=== PATIENT | male | born 1970 | race American Indian/Alaskan Native ===

== ENCOUNTER 2021-01-25 03:02 | Emergency (ER) | payer SELFPAY ==
[2021-01-25 03:42] LABS: Basophils % (Auto) 0.3 % (0.0-1.8); Eosinophils # (Auto) 0.2 K/mm3 (0.0-0.4); Eosinophils % (Auto) 3.3 % (0.0-4.3); Hematocrit 39.6 % (35.5-45.6); Hemoglobin 13.7 gm/dl (11.8-15.2); Lymphocytes # (Auto) 2.2 K/mm3 (1.2-5.4); Lymphocytes % (Auto) 44.5 % (13.4-35.0); Mean Corpuscular HGB Conc 35 % (32-34); Mean Corpuscular Volume 90 fl (84-94); Monocytes # (Auto) 0.4 K/mm3 (0.0-0.8); Monocytes % (Auto) 7.9 % (0.0-7.3); Platelet Count 253 K/mm3 (140-440); Red Blood Count 4.39 M/mm3 (3.65-5.03); Red Cell Distribution Width 14.1 % (13.2-15.2)
[2021-01-25 04:04] LABS: Alanine Aminotransferase 20 units/L (7-56); Albumin 3.4 g/dL (3.9-5); BUN/Creatinine Ratio 12; Blood Urea Nitrogen 13 mg/dL (9-20); Hemolysis Index 9
--- NOTE | 2021-01-25 04:06 | XRay Report ---
CHEST PA AND LATERAL VIEWS INDICATION: chest pain. COMPARISON: None FINDINGS: Support devices: None Heart: Normal Lungs/Pleura: No acute pulmonary or pleural findings. IMPRESSION: 1. No significant abnormality. Signer Name: Willaim Romeo MD Signed: 01/25/2021 4:02 AM Workstation Name: [id number]
[2021-01-25] MEDS ORDERED: IPRATROPIUM/ALBUTEROL SULFATE 3 ML AMPUL.NEB IH ONE (06:20)
--- NOTE | 2021-01-25 07:02 | Emergency Department Report ---
ED Chest Pain HPI - General Chief Complaint: Chest Pain Stated Complaint: CHEST PAIN/DIZZINESS/BODY NUMBNESS Time Seen by Provider: 01/25/21 06:05 Source: patient Mode of arrival: Ambulatory Limitations: No Limitations - History of Present Illness Initial Comments: Patient is a 50-year-old F Q[place] male who is presenting with chest discomfort. Patient has a past medical history of asthma diabetes hypertension. Patient states his pain started approximately 1 AM last night. He has had a cough for several days productive of some clear sputum. Denies fever body aches. Patient on arrival was eating potato chips and was somewhat uncooperative. During my assessment the patient is sleeping comfortably and is a poor historian as he was reluctant to answer questions seem to does not want to be bothered.. - Related Data Previous Rx's Medication Instructions Recorded Last Taken Type Albuterol Mdi (or & Nicu Only) 2 puff IH QID PRN #1 inhalation 01/25/21 Unknown Rx [ProAir HFA Inhaler] Benzonatate [Tessalon Perles] 100 mg PO Q8HR #10 capsule 01/25/21 Unknown Rx predniSONE [Deltasone] 20 mg PO QDAY #5 tab 01/25/21 Unknown Rx Allergies Allergy/AdvReac Type Severity Reaction Status Date / Time Sulfa (Sulfonamide Allergy Unknown Verified 01/25/21 03:08 Antibiotics) Heart Score - HEART Score History: Slightly suspicious EKG: Normal Age: 45-65 Risk factors: 1-2 risk factors Troponin: < normal limit HEART Score: 2 - EKG Read Time Time EKG Completed: 03:14 EKG Read Time: 03:19 ED Review of Systems ROS: Stated complaint: CHEST PAIN/DIZZINESS/BODY NUMBNESS Other details as noted in HPI Comment: All other systems reviewed and negative ED Past Medical Hx - Past Medical History Previous Medical History?: Yes Hx Hypertension: Yes Hx Diabetes: Yes Hx Sickle Cell Disease: Yes Hx Asthma: Yes - Surgical History Past Surgical History?: No - Social History Smoking Status: Current Every Day Smoker Substance Use Type: Alcohol, Cocaine - Medications Home Medications: Home Medications Medication Instructions Recorded Confirmed Last Taken Type Albuterol Mdi (or & Nicu Only) 2 puff IH QID PRN #1 inhalation 01/25/21 Unknown Rx [ProAir HFA Inhaler] Benzonatate [Tessalon Perles] 100 mg PO Q8HR #10 capsule 01/25/21 Unknown Rx predniSONE [Deltasone] 20 mg PO QDAY #5 tab 01/25/21 Unknown Rx ED Physical Exam - General Limitations: No Limitations General appearance: alert, in no apparent distress - Head Head exam: Present: atraumatic, normocephalic - Eye Eye exam: Present: normal appearance - ENT ENT exam: Present: mucous membranes moist - Neck Neck exam: Present: normal inspection - Respiratory Respiratory exam: Present: wheezes. Absent: normal lung sounds bilaterally, respiratory distress, rales, rhonchi - Cardiovascular Cardiovascular Exam: Present: regular rate, normal rhythm, normal heart sounds. Absent: systolic murmur, diastolic murmur, rubs, gallop - GI/Abdominal GI/Abdominal exam: Present: soft, normal bowel sounds. Absent: distended, tenderness, guarding, rebound - Rectal Rectal exam: Present: deferred - Extremities Exam Extremities exam: Present: normal inspection - Back Exam Back exam: Present: normal inspection - Neurological Exam Neurological exam: Present: alert, oriented X3 - Psychiatric Psychiatric exam: Present: normal affect, normal mood - Skin Skin exam: Present: warm, dry, intact, normal color. Absent: rash ED Course Vital Signs 01/25/21 01/25/21 01/25/21 03:05 05:00 05:16 Temperature 98.3 F Pulse Rate 80 98 H 98 H Respiratory 16 15 16 Rate Blood Pressure 145/95 140/93 135/80 O2 Sat by Pulse 97 97 96 Oximetry 01/25/21 01/25/21 01/25/21 05:30 05:46 06:00 Temperature Pulse Rate 99 H 86 86 Respiratory 14 14 17 Rate Blood Pressure 141/78 135/80 142/77 O2 Sat by Pulse 97 95 97 Oximetry 01/25/21 01/25/21 01/25/21 06:16 07:00 07:30 Temperature Pulse Rate 79 86 Respiratory 17 17 17 Rate Blood Pressure 121/79 140/78 130/70 O2 Sat by Pulse 96 93 98 Oximetry 01/25/21 08:00 Temperature Pulse Rate 82 Respiratory 14 Rate Blood Pressure 141/82 O2 Sat by Pulse 96 Oximetry ED Medical Decision Making - Lab Data Result diagrams: 01/25/21 03:16 01/25/21 03:16 Labs 01/25/21 01/25/21 03:16 03:16 WBC 5.0 RBC 4.39 Hgb 13.7 Hct 39.6 MCV 90 MCH 31 MCHC 35 H RDW 14.1 Plt Count 253 Lymph % (Auto) 44.5 H [place] % (Auto) 7.9 H Eos % (Auto) 3.3 Baso % (Auto) 0.3 Lymph # (Auto) 2.2 [place] # (Auto) 0.4 Eos # (Auto) 0.2 Baso # (Auto) 0.0 Seg Neutrophils % 44.0 Seg Neutrophils # 2.2 Sodium 136 L Potassium 4.4 Chloride 98.9 Carbon Dioxide 29 Anion Gap 13 BUN 13 Creatinine 1.1 Estimated GFR > 60 BUN/Creatinine Ratio 12 Glucose 108 H Calcium 8.0 L Total Bilirubin 0.30 AST 32 ALT 20 Alkaline Phosphatase 71 Total Protein 5.0 L Albumin 3.4 L Albumin/Globulin Ratio 2.1 Trop <0.02 - EKG Data -: EKG Interpreted by Ri - EKG Data 01/25/21 07:01 EKG shows sinus rhythm rate of 75. [place] is leftward. Other intervals are normal. No ST segment elevation or depression is found. Time of interpretation is 319 - Radiology Data [facility] [address] [place] [address] XRay Report Signed Patient: ANUJ CALIXTO MR#: [id number] : 1970 Acct:[id number] Age/Sex: 50 / M ADM Date: 01/25/21 Loc: ED Attending Dr: Ordering Physician: MALINI TALAVERA MD Date of Service: 01/25/21 Procedure(s): XR chest routine 2V Accession Number(s): [id number] cc: ED MD SADAF Fluoro Time In Minutes: CHEST PA AND LATERAL VIEWS INDICATION: chest pain. COMPARISON: None FINDINGS: Support devices: None Heart: Normal Lungs/Pleura: No acute pulmonary or pleural findings. IMPRESSION: 1. No significant abnormality. Signer Name: William Romeo MD Signed: 01/25/2021 4:02 AM Workstation Name: [id number] - Medical Decision Making Patient was given a neb treatment and his wheezing has resolved. Troponin is within normal limits as well as his EKG. Patient be treated for acute bronchitis discharged home. Is urged to get outpatient testing for COVID-19. Critical care attestation.: If time is entered above; I have spent that time in minutes in the direct care of this critically ill patient, excluding procedure time. ED Disposition Clinical Impression: Acute bronchitis, Atypical chest pain Disposition: DC- TO HOME OR SELFCARE Is pt being admited?: No Does the pt Need Aspirin: No Condition: Stable Instructions: Acute Bronchitis (ED), Nonspecific Chest Pain, Adult, Acute Bronchitis, Adult, [id number] Additional Instructions: Please get outpatient testing for COVID-19 in a local urgent care Time of Disposition: 08:24
[2021-01-25 08:41] VITALS: BP 141/84
--- NOTE | 2021-01-26 10:46 | Electrocardiograph Report ---
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
== END 2021-01-25 08:47 | disposition home or self-care (01) ==
LOC: ED 03:02
DX: J20.9 Acute bronchitis, unspecified (principal); R07.89 Other chest pain; I10 Essential (primary) hypertension; E11.9 Type 2 diabetes mellitus without complications; Z79.899 Other long term (current) drug therapy; Z88.2 Allergy status to sulfonamides
CPT/HCPCS: 36415; 71046; 80053; 84484; 85025; 93005

== ENCOUNTER 2021-02-11 01:37 | Emergency (ER) | payer SELFPAY ==
[2021-02-11] MEDS ORDERED: ASPIRIN 325 MG TAB PO ONE (01:53)
--- NOTE | 2021-02-11 02:50 | XRay Report ---
CHEST 2 VIEWS INDICATION: CHEST PAIN. COMPARISON: 01/25/2021 FINDINGS: SUPPORT DEVICES: None. HEART: Within normal limits. LUNGS/PLEURA: Mild central peribronchial thickening slightly asymmetric to the right with no consolid ation or effusion. No pneumothorax. ADDITIONAL FINDINGS: None. IMPRESSION: 1. Pulmonary findings as above could reflect very mild/early slightly asymmetric edema or could be re active. Signer Name: Agustin Garay MD Signed: 02/11/2021 2:45 AM Workstation Name: [id number]
[2021-02-11 03:05] LABS: Basophils % (Auto) 0.2 % (0.0-1.8); Eosinophils # (Auto) 0.1 K/mm3 (0.0-0.4); Eosinophils % (Auto) 2.9 % (0.0-4.3); Hematocrit 36.2 % (35.5-45.6); Hemoglobin 12.6 gm/dl (11.8-15.2); Lymphocytes # (Auto) 2.4 K/mm3 (1.2-5.4); Lymphocytes % (Auto) 46.6 % (13.4-35.0); Mean Corpuscular HGB Conc 35 % (32-34); Mean Corpuscular Volume 90 fl (84-94); Monocytes # (Auto) 0.3 K/mm3 (0.0-0.8); Monocytes % (Auto) 6.7 % (0.0-7.3); Platelet Count 219 K/mm3 (140-440); Red Blood Count 4.02 M/mm3 (3.65-5.03)
[2021-02-11 03:28] LABS: Alanine Aminotransferase 21 units/L (7-56); Albumin 3.3 g/dL (3.9-5); BUN/Creatinine Ratio 18; Blood Urea Nitrogen 22 mg/dL (9-20); Calcium 8.2 mg/dL (8.4-10.2); Hemolysis Index 5
--- NOTE | 2021-02-11 08:03 | Emergency Department Report ---
ED General Adult HPI - General Chief complaint: Chest Pain Stated complaint: CHEST PAIN/NUMBNESS IN LEGS/SOB Time Seen by Provider: 02/11/21 08:01 Source: patient Mode of arrival: Ambulatory Limitations: No Limitations - History of Present Illness Initial comments: Patient is a 50-year-old male presents emergency department for evaluation of mild intermittent crampy epigastric discomfort since 1:30 AM associated with wheezing and dry cough beginning at same time. Patient denies calf pain or swelling, denies recent surgery, denies exertional symptoms. Patient denies pleuritic symptoms. - Related Data Previous Rx's Medication Instructions Recorded Last Taken Type Albuterol Mdi (or & Nicu Only) 2 puff IH QID PRN #1 inhalation 01/25/21 Unknown Rx [ProAir HFA Inhaler] Benzonatate [Tessalon Perles] 100 mg PO Q8HR #10 capsule 01/25/21 Unknown Rx predniSONE [Deltasone] 20 mg PO QDAY #5 tab 01/25/21 Unknown Rx Albuterol Mdi (or & Nicu Only) 2 puff IH QID PRN #8.5 gram 02/11/21 Unknown Rx [ProAir HFA Inhaler] Famotidine [Acid Controller] 20 mg PO BID 14 Days #28 tablet 02/11/21 Unknown Rx Allergies Allergy/AdvReac Type Severity Reaction Status Date / Time Sulfa (Sulfonamide Allergy Unknown Verified 01/25/21 03:08 Antibiotics) ED Review of Systems ROS: Stated complaint: CHEST PAIN/NUMBNESS IN LEGS/SOB Other details as noted in HPI Comment: All other systems reviewed and negative ED Past Medical Hx - Past Medical History Hx Hypertension: Yes Hx Diabetes: Yes Hx Sickle Cell Disease: Yes Hx Asthma: Yes - Surgical History Past Surgical History?: No - Social History Smoking Status: Current Every Day Smoker Substance Use Type: None - Medications Home Medications: Home Medications Medication Instructions Recorded Confirmed Last Taken Type Albuterol Mdi (or & Nicu Only) 2 puff IH QID PRN #1 inhalation 01/25/21 Unknown Rx [ProAir HFA Inhaler] Benzonatate [Tessalon Perles] 100 mg PO Q8HR #10 capsule 01/25/21 Unknown Rx predniSONE [Deltasone] 20 mg PO QDAY #5 tab 01/25/21 Unknown Rx Albuterol Mdi (or & Nicu Only) 2 puff IH QID PRN #8.5 gram 02/11/21 Unknown Rx [ProAir HFA Inhaler] Famotidine [Acid Controller] 20 mg PO BID 14 Days #28 tablet 02/11/21 Unknown Rx ED Physical Exam - General Limitations: No Limitations General appearance: alert, in no apparent distress - Head Head exam: Present: atraumatic, normocephalic - Eye Eye exam: Present: normal appearance - ENT ENT exam: Present: mucous membranes moist - Neck Neck exam: Present: normal inspection - Respiratory Respiratory exam: Present: wheezes. Absent: respiratory distress - Cardiovascular Cardiovascular Exam: Present: regular rate, normal rhythm - GI/Abdominal GI/Abdominal exam: Present: soft, tenderness (Mild epigastric), normal bowel sounds - Rectal Rectal exam: Present: deferred - Extremities Exam Extremities exam: Present: normal inspection - Back Exam Back exam: Present: normal inspection - Neurological Exam Neurological exam: Present: alert, oriented X3 - Psychiatric Psychiatric exam: Present: normal affect, normal mood - Skin Skin exam: Present: warm, dry, intact, normal color. Absent: rash ED Course Vital Signs 02/11/21 02/11/21 01:50 09:37 Temperature 99.2 F Pulse Rate 91 H 71 Respiratory 18 16 Rate Blood Pressure 150/88 Blood Pressure 173/95 [Right] O2 Sat by Pulse 94 98 Oximetry - Reevaluation(s) Reevaluation #1: 02/11/21 08:14 Patient initially treated with DuoNeb x1 and Maalox p.o. Reevaluation #2: 02/11/21 09:55 On reevaluation, patient in no acute distress, states wheezing and abdominal pain have resolved with medication. Abdomen soft, nontender. Lungs clear to auscultation bilaterally. ED Medical Decision Making - Lab Data Result diagrams: 02/11/21 02:27 02/11/21 02:27 Labs 02/11/21 02/11/21 02/11/21 02:27 02:27 04:33 WBC 5.2 RBC 4.02 Hgb 12.6 Hct 36.2 MCV 90 MCH 31 MCHC 35 H RDW 14.0 Plt Count 219 Lymph % (Auto) 46.6 H [place] % (Auto) 6.7 Eos % (Auto) 2.9 Baso % (Auto) 0.2 Lymph # (Auto) 2.4 [place] # (Auto) 0.3 Eos # (Auto) 0.1 Baso # (Auto) 0.0 Seg Neutrophils % 43.6 Seg Neutrophils # 2.3 Sodium 134 L Potassium 3.8 Chloride 97.5 L Carbon Dioxide 24 Anion Gap 16 BUN 22 H Creatinine 1.2 Estimated GFR > 60 BUN/Creatinine Ratio 18 Glucose 160 H Calcium 8.2 L Total Bilirubin 0.30 AST 32 ALT 21 Alkaline Phosphatase 62 Troponin T < 0.010 < 0.010 Total Protein 4.8 L Albumin 3.3 L Albumin/Globulin Ratio 2.2 Lipase 02/11/21 08:17 WBC RBC Hgb Hct MCV MCH MCHC RDW Plt Count Lymph % (Auto) [place] % (Auto) Eos % (Auto) Baso % (Auto) Lymph # (Auto) [place] # (Auto) Eos # (Auto) Baso # (Auto) Seg Neutrophils % Seg Neutrophils # Sodium Potassium Chloride Carbon Dioxide Anion Gap BUN Creatinine Estimated GFR BUN/Creatinine Ratio Glucose Calcium Total Bilirubin AST ALT Alkaline Phosphatase Troponin T < 0.010 Total Protein Albumin Albumin/Globulin Ratio Lipase 50 Vital Signs 02/11/21 02/11/21 01:50 09:37 Temperature 99.2 F Pulse Rate 91 H 71 Respiratory 18 16 Rate Blood Pressure 150/88 Blood Pressure 173/95 [Right] O2 Sat by Pulse 94 98 Oximetry - EKG Data -: EKG Interpreted by Me (Sinus rhythm at 84, no ST-T changes, normal QRs) - Radiology Data Radiology results: report reviewed CHEST 2 VIEWS INDICATION: CHEST PAIN. COMPARISON: 01/25/2021 FINDINGS: SUPPORT DEVICES: None. HEART: Within normal limits. LUNGS/PLEURA: Mild central peribronchial thickening slightly asymmetric to the right with no consolidation or effusion. No pneumothorax. ADDITIONAL FINDINGS: None. IMPRESSION: 1. Pulmonary findings as above could reflect very mild/early slightly asymmetric edema or could be reactive. Signer Name: Agustin Garay MD Signed: 02/11/2021 1:45 AM Workstation Name: [id number] Critical care attestation.: If time is entered above; I have spent that time in minutes in the direct care of this critically ill patient, excluding procedure time. ED Disposition Clinical Impression: Abdominal pain, Asthma exacerbation Disposition: DC-01 TO HOME OR SELFCARE Is pt being admited?: No Condition: Stable Instructions: Bronchospasm, Adult, Abdominal Pain, Adult Additional Instructions: Follow-up with primary care doctor in 1 to 2 days for reevaluation. Return to the emergency department for worsening symptoms. Prescriptions: Famotidine [Acid Controller] 20 mg PO BID 14 Days #28 tablet Albuterol Mdi (or & Nicu Only) [ProAir HFA Inhaler] 2 puff IH QID PRN #8.5 gram PRN Reason: Shortness Of Breath Referrals: PRIMARY CARE, [Primary Care Provider] - 3-5 Days
[2021-02-11] MEDS ORDERED: IPRATROPIUM/ALBUTEROL SULFATE 3 ML AMPUL.NEB IH ONE (08:11)
[2021-02-11] MEDS ORDERED: ALUM-MAG HYDROXIDE-SIMETHICONE 200-200-20MG/5ML ORAL LIQD 30 ML PO ONE (08:13)
[2021-02-11 09:38] VITALS: BP 173/95
--- NOTE | 2021-02-12 13:44 | Electrocardiograph Report ---
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
== END 2021-02-11 09:40 | disposition home or self-care (01) ==
LOC: ED 01:37
DX: J45.901 Unspecified asthma with (acute) exacerbation (principal); R10.9 Unspecified abdominal pain; I10 Essential (primary) hypertension; E11.9 Type 2 diabetes mellitus without complications; F17.200 Nicotine dependence, unspecified, uncomplicated; Z79.899 Other long term (current) drug therapy; Z88.2 Allergy status to sulfonamides
CPT/HCPCS: 36415; 71046; 80053; 83690; 84484; 85025; 93005

== ENCOUNTER → 2021-06-12 | Emergency (ER) | payer OTHER ==
[~2021-06-12] MED LIST: ASPIRIN 325 MG TAB PO ONE
[2021-06-12 05:38] VITALS: BP 149/98
--- NOTE | 2021-06-12 07:02 | XRay Report ---
CHEST 2 VIEWS INDICATION / CLINICAL INFORMATION: CHEST PAIN. COMPARISON: 02/11/2021 FINDINGS: SUPPORT DEVICES: None. HEART / MEDIASTINUM: No significant abnormality. LUNGS / PLEURA: No significant pulmonary or pleural abnormality. No pneumothorax. ADDITIONAL FINDINGS: No significant additional findings. IMPRESSION: 1. No acute findings. Signer Name: Adam Billings MD Signed: 06/12/2021 6:58 AM Workstation Name: [id number]
[2021-06-12 07:21] LABS: Basophils % (Auto) 0.4 % (0.0-1.8); Eosinophils # (Auto) 0.2 K/mm3 (0.0-0.4); Hematocrit 36.9 % (35.5-45.6); Hemoglobin 12.4 gm/dl (11.8-15.2); Lymphocytes # (Auto) 2.8 K/mm3 (1.2-5.4); Lymphocytes % (Auto) 54.2 % (13.4-35.0); Mean Corpuscular HGB Conc 34 % (32-34); Mean Corpuscular Volume 90 fl (84-94); Monocytes # (Auto) 0.4 K/mm3 (0.0-0.8); Monocytes % (Auto) 7.2 % (0.0-7.3); Platelet Count 222 K/mm3 (140-440); Red Blood Count 4.11 M/mm3 (3.65-5.03); Red Cell Distribution Width 14.5 % (13.2-15.2)
[2021-06-12 07:41] LABS: Alanine Aminotransferase 16 units/L (7-56); Albumin 3.3 g/dL (3.9-5); BUN/Creatinine Ratio 20; Blood Urea Nitrogen 24 mg/dL (9-20); Calcium 8.8 mg/dL (8.4-10.2); Hemolysis Index 7
--- NOTE | 2021-06-12 14:01 | Emergency Department Report ---
ED General Adult HPI - General Chief complaint: Chest Pain Stated complaint: PAIN WHEN COUGHING Source: patient Mode of arrival: Ambulatory Limitations: No Limitations - History of Present Illness Initial comments: pt is a 51 yo male presents for multiple complaints. he reports his first complaint is substernal CP that began a month ago. he states that it comes and goes. he states he had bronchitis in march 2021. he states he is a smoker. pt states he has pain with coughing. he denies any SOB, fever, n/v/d. he has not received COVID vaccine. states he got tested for COVID and reports it was negative. Patient states he is also been having right-sided back pain that began 2 to 3 days ago. 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 He denies any fall or injury. He denies any fever, numbness, weakness, bowel or bladder incontinence, difficulty walking. He states his pain is worse with movement and palpation. Patient states that he is also noticed a lump to his scalp that began a few days ago. He states he does shave with a razor. he denies any drainage or fever. PMHx HTN. allergy: sulfa. no recent travel, no sick contacts, no recent surgery. - Related Data Previous Rx's Medication Instructions Recorded Last Taken Type Albuterol Mdi (or & Nicu Only) 2 puff IH QID PRN #1 inhalation 01/25/21 Unknown Rx [ProAir HFA Inhaler] Benzonatate [Tessalon Perles] 100 mg PO Q8HR #10 capsule 01/25/21 Unknown Rx predniSONE [Deltasone] 20 mg PO QDAY #5 tab 01/25/21 Unknown Rx Albuterol Mdi (or & Nicu Only) 2 puff IH QID PRN #8.5 gram 02/11/21 Unknown Rx [ProAir HFA Inhaler] Famotidine [Acid Controller] 20 mg PO BID 14 Days #28 tablet 02/11/21 Unknown Rx Doxycycline Hyclate [Doxycycline 100 mg PO BID 7 Days #14 tab 06/12/21 Unknown Rx Hyclate TAB] Naproxen 375 mg PO BID PRN #20 tablet 06/12/21 Unknown Rx Neomycin/Bacitracin/Polymyxinb 1 applicatio TP BID #14 oint...g. 06/12/21 Unknown Rx [Triple Antibiotic Ointment] methOCARBAMOL [Robaxin TAB] 500 mg PO BID PRN #14 tab 06/12/21 Unknown Rx Allergies Allergy/AdvReac Type Severity Reaction Status Date / Time Sulfa (Sulfonamide Allergy Unknown Verified 01/25/21 03:08 Antibiotics) ED Review of Systems ROS: Stated complaint: PAIN WHEN COUGHING Other details as noted in HPI Comment: All other systems reviewed and negative ED Past Medical Hx - Past Medical History Previous Medical History?: Yes Hx Hypertension: Yes Hx Diabetes: Yes Hx Sickle Cell Disease: Yes Hx Asthma: Yes - Surgical History Past Surgical History?: No - Social History Smoking Status: Never Smoker Substance Use Type: None - Medications Home Medications: Home Medications Medication Instructions Recorded Confirmed Last Taken Type Albuterol Mdi (or & Nicu Only) 2 puff IH QID PRN #1 inhalation 01/25/21 Unknown Rx [ProAir HFA Inhaler] Benzonatate [Tessalon Perles] 100 mg PO Q8HR #10 capsule 01/25/21 Unknown Rx predniSONE [Deltasone] 20 mg PO QDAY #5 tab 01/25/21 Unknown Rx Albuterol Mdi (or & Nicu Only) 2 puff IH QID PRN #8.5 gram 02/11/21 Unknown Rx [ProAir HFA Inhaler] Famotidine [Acid Controller] 20 mg PO BID 14 Days #28 tablet 02/11/21 Unknown Rx Doxycycline Hyclate [Doxycycline 100 mg PO BID 7 Days #14 tab 06/12/21 Unknown Rx Hyclate TAB] Naproxen 375 mg PO BID PRN #20 tablet 06/12/21 Unknown Rx Neomycin/Bacitracin/Polymyxinb 1 applicatio TP BID #14 oint...g. 06/12/21 Unknown Rx [Triple Antibiotic Ointment] methOCARBAMOL [Robaxin TAB] 500 mg PO BID PRN #14 tab 06/12/21 Unknown Rx ED Physical Exam - General Limitations: No Limitations General appearance: alert, in no apparent distress - Head Head exam: Present: other (there is a 2 cm area of induration present to the scalp, no fluctuance, no drainage ) - Eye Eye exam: Present: normal appearance, PERRL, EOMI. Absent: conjunctival injection - ENT ENT exam: Present: mucous membranes moist - Neck Neck exam: Present: normal inspection, full ROM. Absent: tenderness, meningismus - Respiratory Respiratory exam: Present: normal lung sounds bilaterally. Absent: respiratory distress, wheezes, rales, rhonchi, stridor, chest wall tenderness, accessory muscle use, decreased breath sounds, prolonged expiratory - Cardiovascular Cardiovascular Exam: Present: regular rate, normal rhythm, normal heart sounds. Absent: systolic murmur, diastolic murmur, rubs, gallop - Back Exam Back exam: Present: normal inspection, full ROM, paraspinal tenderness (right sided T-spine paraspinal muscular ttp, no midline C-spine, T-spine or L-spine ttp, no step offs, no deformities ). Absent: vertebral tenderness - Neurological Exam Neurological exam: Present: alert, oriented X3, CN II-XII intact, normal gait. Absent: motor sensory deficit - Psychiatric Psychiatric exam: Present: normal affect, normal mood - Skin Skin exam: Present: warm, dry ED Course Vital Signs 06/12/21 05:20 Temperature 98.5 F Pulse Rate 80 Respiratory 18 Rate Blood Pressure 149/98 [Left] O2 Sat by Pulse 100 Oximetry ED Medical Decision Making - Lab Data Result diagrams: 06/12/21 06:49 06/12/21 06:49 Lab Results 06/12/21 06/12/21 06/12/21 Range/Units 06:49 06:49 09:48 WBC 5.3 (4.5-11.0) K/mm3 RBC 4.11 (3.65-5.03) M/mm3 Hgb 12.4 (11.8-15.2) gm/dl Hct 36.9 (35.5-45.6) % MCV 90 (84-94) fl MCH 30 (28-32) pg MCHC 34 (32-34) % RDW 14.5 (13.2-15.2) % Plt Count 222 (140-440) K/mm3 Lymph % (Auto) 54.2 H (13.4-35.0) % Morgan % (Auto) 7.2 (0.0-7.3) % Eos % (Auto) 3.0 (0.0-4.3) % Baso % (Auto) 0.4 (0.0-1.8) % Lymph # (Auto) 2.8 (1.2-5.4) K/mm3 Morgan # (Auto) 0.4 (0.0-0.8) K/mm3 Eos # (Auto) 0.2 (0.0-0.4) K/mm3 Baso # (Auto) 0.0 (0.0-0.1) K/mm3 Seg Neutrophils % 35.2 L (40.0-70.0) % Seg Neutrophils # 1.8 (1.8-7.7) K/mm3 Sodium 142 (137-145) mmol/L Potassium 3.7 (3.6-5.0) mmol/L Chloride 105.7 (98-107) mmol/L Carbon Dioxide 28 (22-30) mmol/L Anion Gap 12 mmol/L BUN 24 H (9-20) mg/dL Creatinine 1.2 (0.8-1.3) mg/dL Estimated GFR > 60 ml/min BUN/Creatinine Ratio 20 % Glucose 83 (75-100) mg/dL Calcium 8.8 (8.4-10.2) mg/dL Total Bilirubin 0.20 (0.1-1.2) mg/dL AST 26 (5-40) units/L ALT 16 (7-56) units/L Alkaline Phosphatase 72 (35-129) units/L Troponin T < 0.010 < 0.010 (0.00-0.029) ng/mL Total Protein 5.1 L (6.3-8.2) g/dL Albumin 3.3 L (3.9-5) g/dL Albumin/Globulin Ratio 1.8 % - EKG Data EKG shows normal: sinus rhythm (at 76 bpm), QRS complexes Rate: normal - EKG Data 06/12/21 14:08 mildly prolonged QT at 446 LAD no STEMI Compared to EKG on 02/15/2021, no significant change - Radiology Data Radiology results: report reviewed Ordering Physician: ED MD SADAF Date of Service: 06/12/21 Procedure(s): XR chest routine 2V Accession Number(s): [id number] cc: ED MD SADAF Fluoro Time In Minutes: CHEST 2 VIEWS INDICATION / CLINICAL INFORMATION: CHEST PAIN. COMPARISON: 02/11/2021 FINDINGS: SUPPORT DEVICES: None. HEART / MEDIASTINUM: No significant abnormality. LUNGS / PLEURA: No significant pulmonary or pleural abnormality. No pneumothorax. ADDITIONAL FINDINGS: No significant additional findings. IMPRESSION: 1. No acute findings. Signer Name: Adam Billings MD Signed: 06/12/2021 6:58 AM Workstation Name: [id number] Transcribed By: TL Dictated By: Adam Billings MD Electronically Authenticated By: Adam Billings MD Signed Date/Time: 06/12/21657 DD/ 6 TD/TT: Print - Medical Decision Making pt is a 51 yo male presents for multiple complaints. he reports his first complaint is substernal CP that began a month ago. he states that it comes and goes. he states he had bronchitis in march 2021. he states he is a smoker. pt states he has pain with coughing. he denies any SOB, fever, n/v/d. he has not received COVID vaccine. states he got tested for COVID and reports it was negative. Patient states he is also been having right-sided back pain that began 2 to 3 days ago. 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 He denies any fall or injury. He denies any fever, numbness, weakness, bowel or bladder incontinence, difficulty walking. He states his pain is worse with movement and palpation. Patient states that he is also noticed a lump to his scalp that began a few days ago. He states he does shave with a razor. he denies any drainage or fever. PMHx HTN. allergy: sulfa. no recent travel, no sick contacts, no recent surgery. Vitals are stable. on exam:there is a 2 cm area of induration present to the scalp, no fluctuance, no drainage, right sided T-spine paraspinal muscular ttp, no midline C-spine, T-spine or L-spine ttp, no step offs, no deformities, no focal neuro deficits, sounds are clear bilaterally, no wheezing, no rales, no rhonchi. Examination appears could likely be consistent with folliculitis and muscle strain. No red flag warning signs of back pain, no trauma, no unexplained weight loss, no fever, no IV drug use, no steroid use, no history of cancer. Labs are normal. Troponin is negative x2. EKG with no significant change from previous. X-ray: 1. No acute findings. Patient has no clinical signs of acute bacterial pneumonia or bacterial bronchitis. He has no wheezing on exam. Discussed smoking cessation with patient. He states that he feels the chest pain with coughing. Do not suspect ACS at this time. given prescription for meds. advised pt please use medication as prescribed. Follow-up with primary care doctor. Return to emergency room for new or worsening symptoms. Critical care attestation.: If time is entered above; I have spent that time in minutes in the direct care of this critically ill patient, excluding procedure time. ED Disposition Clinical Impression: Dry cough, Folliculitis Chest pain Qualifiers: Chest pain type: unspecified Qualified Code(s): R07.9 - Chest pain, unspecified Back pain Qualifiers: Back pain location: thoracic back pain Chronicity: acute Back pain laterality: right Qualified Code(s): M54.6 - Pain in thoracic spine Disposition: HOME / SELF CARE / HOMELESS Is pt being admited?: No Does the pt Need Aspirin: No Condition: Stable Instructions: Acute Back Pain, Adult, Nonspecific Chest Pain, Adult, F olliculitis Additional Instructions: Please use medication as prescribed. Follow-up with primary care doctor. Return to emergency room for new or worsening symptoms. Prescriptions: Doxycycline Hyclate [Doxycycline Hyclate TAB] 100 mg PO BID 7 Days #14 tab Naproxen 375 mg PO BID PRN #20 tablet PRN Reason: pain methOCARBAMOL [Robaxin TAB] 500 mg PO BID PRN #14 tab PRN Reason: muscle spasm/pain Neomycin/Bacitracin/Polymyxinb [Triple Antibiotic Ointment] 1 applicatio TP BID #14 oint...g. Referrals: ROSALES BROWN MD [Staff Physician] - 3-[address] [facility] [Provider Group] - 3-5 Days Time of Disposition: 14:05 Print Language: BHUTANESE HEART Score - HEART Score History: Slightly suspicious EKG: Normal Age: 45-65 Risk factors: > 3 risk factors or hx of atherosclerotic disease Troponin: Troponin T < 0.010 ng/mL (0.00-0.029) 06/12/21 09:48 Troponin: < normal limit HEART Score: 3
--- NOTE | 2021-06-12 17:48 | Electrocardiograph Report ---
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
== END | disposition home or self-care (01) ==
LOC: ED 02:52
DX: R05 Cough (principal); R07.89 Other chest pain; L73.9 Follicular disorder, unspecified; M54.9 Dorsalgia, unspecified; I10 Essential (primary) hypertension; E11.9 Type 2 diabetes mellitus without complications; J45.909 Unspecified asthma, uncomplicated; Z88.2 Allergy status to sulfonamides; Z79.899 Other long term (current) drug therapy
CPT/HCPCS: 36415; 71046; 80053; 84484; 85025; 93005; 99283

== ENCOUNTER 2021-10-02 02:36 | Emergency (ER) | payer SELFPAY ==
[2021-10-02] MEDS ORDERED: KETOROLAC 30 MG/1 ML INJ IM ONE (03:22)
[2021-10-02] MEDS ORDERED: IPRATROPIUM/ALBUTEROL SULFATE 3 ML AMPUL.NEB IH ONE (03:22)
--- NOTE | 2021-10-02 03:22 | Emergency Department Report ---
ED General Adult HPI - General Chief complaint: Chest Pain Stated complaint: CHEST PAIN/DIFF BREATHING Time Seen by Provider: 10/02/21 03:05 Source: patient, EMS Mode of arrival: Stretcher Limitations: No Limitations - History of Present Illness Initial comments: Patient presented by EMS secondary to chest pain, difficulty breathing, dizziness, and lightheadedness. He states that he just did not feel well. He had been released from [facility] at about 2:30 in the afternoon. He had been there for the same symptoms. He was told that x-rays, blood work, and EKG were all normal. Patient was given ibuprofen for pain. He has chronic leg pain and states that that is not helping. He had played with his daughter and grandchild earlier. He was still having symptoms, so he called EMS tonight. EMS admits that the patient seems to be homeless. He seemed to be walking around quite a bit. He had also been drinking alcohol. Patient is describing the chest pain as a soreness in the precordial area. It does not radiate or migrate. It is not exertional. It is worse with inspiration. There is no trauma associated with this. His leg always hurts. He states that when it gets cold, it is worse. He states that ibuprofen does nothing for him and he asked for something stronger for pain. Patient states that he feels dizzy and lightheaded similar to what he felt when he was at [facility]. He is not having any new symptomatology. - Related Data Previous Rx's Medication Instructions Recorded Last Taken Type Albuterol Mdi (or & Nicu Only) 2 puff IH QID PRN #1 inhalation 01/25/21 Unknown Rx [ProAir HFA Inhaler] Benzonatate [Tessalon Perles] 100 mg PO Q8HR #10 capsule 01/25/21 Unknown Rx predniSONE [Deltasone] 20 mg PO QDAY #5 tab 01/25/21 Unknown Rx Albuterol Mdi (or & Nicu Only) 2 puff IH QID PRN #8.5 gram 02/11/21 Unknown Rx [ProAir HFA Inhaler] Famotidine [Acid Controller] 20 mg PO BID 14 Days #28 tablet 02/11/21 Unknown Rx Doxycycline Hyclate [Doxycycline 100 mg PO BID 7 Days #14 tab 06/12/21 Unknown Rx Hyclate TAB] Naproxen 375 mg PO BID PRN #20 tablet 06/12/21 Unknown Rx Neomycin/Bacitracin/Polymyxinb 1 applicatio TP BID #14 oint...g. 06/12/21 Unknown Rx [Triple Antibiotic Ointment] methOCARBAMOL [Robaxin TAB] 500 mg PO BID PRN #14 tab 06/12/21 Unknown Rx Allergies Allergy/AdvReac Type Severity Reaction Status Date / Time Sulfa (Sulfonamide Allergy Unknown Verified 10/02/21 02:59 Antibiotics) ED Review of Systems ROS: Stated complaint: CHEST PAIN/DIFF BREATHING Other details as noted in HPI Comment: All other systems reviewed and negative Constitutional: denies: fever Eyes: denies: vision change ENT: denies: throat pain Respiratory: denies: cough Cardiovascular: as per HPI Endocrine: denies: unexplained weight loss Gastrointestinal: denies: abdominal pain Genitourinary: denies: dysuria Musculoskeletal: denies: back pain Skin: denies: rash Neurological: denies: headache Hematological/Lymphatic: denies: easy bruising ED Past Medical Hx - Past Medical History Hx Hypertension: Yes Hx Diabetes: Yes Hx Sickle Cell Disease: Yes Hx Asthma: Yes - Family History Family history: hypertension - Social History Smoking Status: Never Smoker Substance Use Type: None - Medications Home Medications: Home Medications Medication Instructions Recorded Confirmed Last Taken Type Albuterol Mdi (or & Nicu Only) 2 puff IH QID PRN #1 inhalation 01/25/21 Unknown Rx [ProAir HFA Inhaler] Benzonatate [Tessalon Perles] 100 mg PO Q8HR #10 capsule 01/25/21 Unknown Rx predniSONE [Deltasone] 20 mg PO QDAY #5 tab 01/25/21 Unknown Rx Albuterol Mdi (or & Nicu Only) 2 puff IH QID PRN #8.5 gram 02/11/21 Unknown Rx [ProAir HFA Inhaler] Famotidine [Acid Controller] 20 mg PO BID 14 Days #28 tablet 02/11/21 Unknown Rx Doxycycline Hyclate [Doxycycline 100 mg PO BID 7 Days #14 tab 06/12/21 Unknown Rx Hyclate TAB] Naproxen 375 mg PO BID PRN #20 tablet 06/12/21 Unknown Rx Neomycin/Bacitracin/Polymyxinb 1 applicatio TP BID #14 oint...g. 06/12/21 Unknown Rx [Triple Antibiotic Ointment] methOCARBAMOL [Robaxin TAB] 500 mg PO BID PRN #14 tab 06/12/21 Unknown Rx ED Physical Exam - General Limitations: No Limitations, Other (Pulse ox noted and normal) General appearance: alert, in no apparent distress - Head Head exam: Present: atraumatic, normocephalic, normal inspection - Eye Eye exam: Present: normal appearance, EOMI. Absent: scleral icterus - ENT ENT exam: Present: mucous membranes moist, normal external ear exam - Neck Neck exam: Present: normal inspection. Absent: meningismus - Respiratory Respiratory exam: Present: wheezes (Mild). Absent: respiratory distress - Cardiovascular Cardiovascular Exam: Present: regular rate, normal rhythm - GI/Abdominal GI/Abdominal exam: Present: soft. Absent: tenderness - Extremities Exam Extremities exam: Present: normal capillary refill. Absent: calf tenderness - Back Exam Back exam: Absent: CVA tenderness (R), CVA tenderness (L) - Neurological Exam Neurological exam: Present: alert, oriented X3, CN II-XII intact. Absent: motor sensory deficit - Psychiatric Psychiatric exam: Present: normal affect, normal mood - Skin Skin exam: Present: warm, dry ED Course Vital Signs 10/02/21 10/02/21 02:59 03:58 Temperature 98.6 F Pulse Rate 94 H 88 Respiratory 16 16 Rate Blood Pressure 158/98 137/81 [Left] O2 Sat by Pulse 96 95 Oximetry - Reevaluation(s) Reevaluation #1: 10/02/21 03:22 EKG was ordered. Old records reviewed. Reevaluation #2: 10/02/21 04:39 EKG is pending. ED Medical Decision Making - EKG Data -: EKG Interpreted by Me - EKG Data 10/02/21 05:06 EKG shows a normal sinus rhythm at 87. Intervals are normal including a QRS of 98. QT is slightly prolonged. There is no S elevation to suggest STEMI. There is no ST depression suggestive of ischemia. Patient has good R wave progression. - Medical Decision Making Patient presented with multiple complaints that he had already been seen for and evaluated for at [facility] earlier in the day. Patient has no EKG change suggestive of STEMI. It should be noted that the patient had these symptoms in the setting of being homeless according to EMS. He was not wheezing at this time. EMS had reported a faint wheeze. He was given the benefit of the doubt and given a DuoNeb here. Regardless, there is no evidence of pneumonia clinically. He does not have adventitious breath sounds to suggest pneumonia. He does not have a fever or cough. He had reported chest pain that been present all day yesterday and today and been seen. He had no change in his work-up based on [facility] presentation. I do not believe he requires a duplicate work-up at this time. Critical Care Time: No Critical care attestation.: If time is entered above; I have spent that time in minutes in the direct care of this critically ill patient, excluding procedure time. ED Disposition Clinical Impression: Precordial chest pain, Wheezing, Dizziness, Chronic pain syndrome Disposition: 01 HOME / SELF CARE / HOMELESS Is pt being admited?: No Condition: Stable Instructions: Nonspecific Chest Pain, Adult, Chronic Pain, Adult, Pain Without a Known Cause, Dizziness Additional Instructions: Drink plenty water. Continue home medication. Return for problems. Follow-up with your regular doctor and your corporate administrative assistant for recheck. Take your medications as prescribed. Referrals: PRIMARY CARE, [Primary Care Provider] - 3-5 Days
[2021-10-02 06:51] VITALS: BP 135/82
--- NOTE | 2021-10-04 10:11 | Electrocardiograph Report ---
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
== END 2021-10-02 05:15 | disposition home or self-care (01) ==
LOC: ED 02:36
DX: R07.89 Other chest pain (principal); R07.2 Precordial pain; R42 Dizziness and giddiness; G89.4 Chronic pain syndrome; I10 Essential (primary) hypertension; E11.9 Type 2 diabetes mellitus without complications; J45.909 Unspecified asthma, uncomplicated; Z79.899 Other long term (current) drug therapy
CPT/HCPCS: 93005; 96372; 99283; J1885

== ENCOUNTER 2022-05-13 04:29 | Emergency (ER) | payer SELFPAY ==
[2022-05-13] MEDS ORDERED: ASPIRIN 325 MG TAB PO ONE (05:07)
--- NOTE | 2022-05-13 05:30 | XRay Report ---
CHEST 2 VIEWS INDICATION / CLINICAL INFORMATION: chestpain. COMPARISON: Chest x-ray 06/12/2021 FINDINGS: SUPPORT DEVICES: None. HEART / MEDIASTINUM: Heart size and mediastinal contour appear within normal limits. LUNGS / PLEURA: No significant pulmonary or pleural abnormality. No pneumothorax. BONES: No significant osseous abnormality. ADDITIONAL FINDINGS: No significant additional findings. IMPRESSION: 1. No active cardiopulmonary disease. Signer Name: Jordan Morocho II, MD Signed: 05/13/2022 5:26 AM Workstation Name: [id number]
[2022-05-13 06:03] LABS: Basophils % (Auto) 0.6 % (0.0-1.8); Eosinophils # (Auto) 0.2 K/mm3 (0.0-0.4); Eosinophils % (Auto) 3.9 % (0.0-4.3); Hematocrit 39.4 % (35.5-45.6); Hemoglobin 13.3 gm/dl (11.8-15.2); Lymphocytes # (Auto) 2.5 K/mm3 (1.2-5.4); Lymphocytes % (Auto) 44.9 % (13.4-35.0); Mean Corpuscular HGB Conc 34 % (32-34); Mean Corpuscular Volume 91 fl (84-94); Monocytes # (Auto) 0.4 K/mm3 (0.0-0.8); Monocytes % (Auto) 6.3 % (0.0-7.3); Platelet Count 187 K/mm3 (140-440); Red Blood Count 4.34 M/mm3 (3.65-5.03); Red Cell Distribution Width 14.5 % (13.2-15.2)
[2022-05-13 06:11] LABS: Alanine Aminotransferase 13 units/L (7-56); Albumin 3.9 g/dL (3.9-5); BUN/Creatinine Ratio 14; Blood Urea Nitrogen 17 mg/dL (9-20); Calcium 8.8 mg/dL (8.4-10.2); Hemolysis Index 7
[2022-05-13] MEDS ORDERED: MORPHINE 4 MG/1 ML INJ IV ONE (06:51)
--- NOTE | 2022-05-13 06:58 | Emergency Department Report ---
ED Abdominal Pain HPI - General Chief Complaint: Chest Pain Stated Complaint: CHEST PAIN. DOE, DIZZINESS Time Seen by Provider: 05/13/22 06:43 Source: patient, EMS Mode of arrival: Stretcher Limitations: No Limitations - History of Present Illness Initial Comments: 52-year-old male alcoholic who presents with epigastric and left upper abdominal discomfort that started around 1230 afternoon yesterday and progressively getting worse. Patient rated the pain as 5/10 in severity. Nothing make pain better. Patient also reports some alcohol drinking but did not give any quantity. No fever or chills reported. Patient also mentions some nonrestrictive chest pain. No cough or shortness of breath noted. He also mention headache and dizziness. No other modifying or associated factors reported. MD Complaint: abdominal pain Severity scale (0 -10): 7 - Related Data Previous Rx's Medication Instructions Recorded Last Taken Type Albuterol Mdi (or & Nicu Only) 2 puff IH QID PRN #1 inhalation 01/25/21 Unknown Rx [ProAir HFA Inhaler] Benzonatate [Tessalon Perles] 100 mg PO Q8HR #10 capsule 01/25/21 Unknown Rx predniSONE [Deltasone] 20 mg PO QDAY #5 tab 01/25/21 Unknown Rx Albuterol Mdi (or & Nicu Only) 2 puff IH QID PRN #8.5 gram 02/11/21 Unknown Rx [ProAir HFA Inhaler] Famotidine [Acid Controller] 20 mg PO BID 14 Days #28 tablet 02/11/21 Unknown Rx Doxycycline Hyclate [Doxycycline 100 mg PO BID 7 Days #14 tab 06/12/21 Unknown Rx Hyclate TAB] Naproxen 375 mg PO BID PRN #20 tablet 06/12/21 Unknown Rx Neomycin/Bacitracin/Polymyxinb 1 applicatio TP BID #14 oint...g. 06/12/21 Unknown Rx [Triple Antibiotic Ointment] methOCARBAMOL [Robaxin TAB] 500 mg PO BID PRN #14 tab 06/12/21 Unknown Rx Omeprazole Magnesium [PriLOSEC Otc] 20 mg PO BID 30 Days #60 tab 05/13/22 Unknown Rx Allergies Allergy/AdvReac Type Severity Reaction Status Date / Time Sulfa (Sulfonamide Allergy Unknown Verified 10/02/21 02:59 Antibiotics) ED Review of Systems ROS: Stated complaint: CHEST PAIN. DOE, DIZZINESS Other details as noted in HPI Comment: All other systems reviewed and negative Cardiovascular: chest pain Gastrointestinal: abdominal pain, nausea ED Past Medical Hx - Past Medical History Previous Medical History?: Yes Hx Hypertension: Yes Hx Diabetes: Yes Hx Sickle Cell Disease: Yes Hx Asthma: Yes - Surgical History Past Surgical History?: No - Social History Smoking Status: Current Every Day Smoker Substance Use Type: Cocaine, Marijuana - Medications Home Medications: Home Medications Medication Instructions Recorded Confirmed Last Taken Type Albuterol Mdi (or & Nicu Only) 2 puff IH QID PRN #1 inhalation 01/25/21 Unknown Rx [ProAir HFA Inhaler] Benzonatate [Tessalon Perles] 100 mg PO Q8HR #10 capsule 01/25/21 Unknown Rx predniSONE [Deltasone] 20 mg PO QDAY #5 tab 01/25/21 Unknown Rx Albuterol Mdi (or & Nicu Only) 2 puff IH QID PRN #8.5 gram 02/11/21 Unknown Rx [ProAir HFA Inhaler] Famotidine [Acid Controller] 20 mg PO BID 14 Days #28 tablet 02/11/21 Unknown Rx Doxycycline Hyclate [Doxycycline 100 mg PO BID 7 Days #14 tab 06/12/21 Unknown Rx Hyclate TAB] Naproxen 375 mg PO BID PRN #20 tablet 06/12/21 Unknown Rx Neomycin/Bacitracin/Polymyxinb 1 applicatio TP BID #14 oint...g. 06/12/21 Unknown Rx [Triple Antibiotic Ointment] methOCARBAMOL [Robaxin TAB] 500 mg PO BID PRN #14 tab 06/12/21 Unknown Rx Omeprazole Magnesium [PriLOSEC Otc] 20 mg PO BID 30 Days #60 tab 05/13/22 Unknown Rx ED Physical Exam - General Limitations: No Limitations General appearance: alert, in no apparent distress - Head Head exam: Present: normal inspection - Eye Eye exam: Present: normal appearance Pupils: Present: normal accommodation - ENT ENT exam: Present: normal exam, normal orophraynx, mucous membranes dry - Neck Neck exam: Present: normal inspection, full ROM. Absent: tenderness - Respiratory Respiratory exam: Present: normal lung sounds bilaterally, respiratory distress - Cardiovascular Cardiovascular Exam: Present: regular rate, normal rhythm, normal heart sounds - GI/Abdominal GI/Abdominal exam: Present: soft, tenderness (Epigastric and left upper quadrant), guarding, normal bowel sounds. Absent: distended, rebound - Extremities Exam Extremities exam: Present: normal inspection, full ROM, normal capillary refill. Absent: tenderness, pedal edema - Back Exam Back exam: Present: normal inspection. Absent: tenderness, CVA tenderness (R), CVA tenderness (L) - Neurological Exam Neurological exam: Present: alert, oriented X3 - Psychiatric Psychiatric exam: Present: normal affect - Skin Skin exam: Present: warm, normal color ED Course Vital Signs 05/13/22 05/13/22 05/13/22 04:29 05:33 05:34 Temperature 98.4 F Pulse Rate 84 77 Respiratory 18 18 Rate Blood Pressure 150/87 Blood Pressure 172/98 [Left] O2 Sat by Pulse 96 98 98 Oximetry 05/13/22 05/13/22 05/13/22 07:21 07:24 07:31 Temperature Pulse Rate 71 72 78 Respiratory 14 13 17 Rate Blood Pressure 175/106 Blood Pressure 178/110 [Left] O2 Sat by Pulse 95 96 93 Oximetry 05/13/22 05/13/22 05/13/22 07:45 08:01 08:15 Temperature Pulse Rate 78 83 72 Respiratory 17 14 14 Rate Blood Pressure 175/106 180/113 180/113 Blood Pressure [Left] O2 Sat by Pulse 96 97 96 Oximetry 05/13/22 05/13/22 05/13/22 08:45 09:15 09:45 Temperature Pulse Rate 88 71 74 Respiratory 16 14 14 Rate Blood Pressure 170/115 182/113 170/92 Blood Pressure [Left] O2 Sat by Pulse 94 95 97 Oximetry 05/13/22 05/13/22 05/13/22 10:01 10:15 10:31 Temperature Pulse Rate 77 70 71 Respiratory 19 15 14 Rate Blood Pressure 148/109 148/109 165/102 Blood Pressure [Left] O2 Sat by Pulse 96 97 99 Oximetry 05/13/22 05/13/22 05/13/22 10:45 11:01 11:15 Temperature Pulse Rate 72 68 70 Respiratory 13 13 13 Rate Blood Pressure 165/102 155/104 155/104 Blood Pressure [Left] O2 Sat by Pulse 98 99 98 Oximetry 05/13/22 11:31 Temperature Pulse Rate 75 Respiratory 14 Rate Blood Pressure 170/104 Blood Pressure [Left] O2 Sat by Pulse 99 Oximetry - Reevaluation(s) Reevaluation #1: 05/13/22 06:56 Here with epigastric and left upper quadrant pain and noted with tenderness in the area with recent alcohol drink this is likely alcoholic gastritis versus alcoholic pancreatitis--so we will go ahead and start pain medicine morphine 4 mg plus IV fluid normal saline 1 L bolus x1. 325 mg aspirin given for the chest pain and EKG order. ED Medical Decision Making - Lab Data Result diagrams: 05/13/22 05:19 05/13/22 05:19 - EKG Data -: EKG Interpreted by Me EKG shows normal: sinus rhythm Rate: normal - EKG Data 05/13/22 06:59 Noted with normal sinus rhythm at a rate of 79 bpm, with left ventricular hypertrophy and no ST elevation or depression in this abnormal ECG. - Medical Decision Making Here with abdominal pain--though likely alcoholic gastritis vs pancreatitis and differential could be but not limited to appendicitis, diverticulitis, cholecystitis, cholelithiasis, nephrolithiasis, duodenitis, colitis, irritable bowel syndrome, cystitis, so in order to rule this out we will go ahead and order routine acute abdomen that include CBC, CMP, urinalysis, and CT imaging of the abdomen/pelvic. Critical care attestation.: If time is entered above; I have spent that time in minutes in the direct care of this critically ill patient, excluding procedure time. ED Disposition Clinical Impression: Epigastric abdominal pain Abdominal pain Qualifiers: Abdominal location: left upper quadrant Qualified Code(s): R10.12 - Left upper quadrant pain Chest pain Qualifiers: Chest pain type: unspecified Qualified Code(s): R07.9 - Chest pain, unspecified Disposition: 01 HOME / SELF CARE / HOMELESS Is pt being admited?: No Does the pt Need Aspirin: No Condition: Stable Instructions: Nonspecific Chest Pain, Adult, [id number], Abdominal Pain, Adult, [id number] Additional Instructions: Avoid any spicy food or heavy fatty meal as those could worsen your symptoms Increase your daily fluid to help your hydration It is very important for you to take your medication as prescribed by your primary doctor Please call and follow-up with your primary doctor in the next 3 to 5 days for progress Please do not hesitate to call or return to emergency room if your symptoms worsen Prescriptions: Omeprazole Magnesium [PriLOSEC Otc] 20 mg PO BID 30 Days #60 tab Time of Disposition: 12:02
[2022-05-13] MEDS ORDERED: hydrALAZINE 10 MG TAB PO ONE (11:58)
[2022-05-13 12:15] VITALS: BP 179/98
[2022-05-13 12:17] LABS: Bilirubin,Urine NEG (Negative); Blood,Urine SM (Negative); Color,Urine Straw (Yellow); Protein,Urine <15 mg/dL mg/dL (Negative); Urobilinogen,Urine < 2.0 mg/dL (<2.0)
[2022-05-13 12:19] LABS: RBC,Urine < 1.0 /HPF (0.0-6.0); WBC,Urine < 1.0 /HPF (0.0-6.0)
[2022-05-13 12:21] LABS: Amphetamine Screen,Urine Negative; Benzodiazepines Screen,Urine Negative; Cannabinoid Screen,Urine Negative; Methadone Screen,Urine Negative; Opiate Screen,Urine Negative
[2022-05-13 12:53] LABS: Cocaine Screen,Urine Positive
--- NOTE | 2022-05-13 16:53 | Electrocardiograph Report ---
[facility] Test Date: 2022-05-13 Test Time: 05:03:19 Pat Name: ANUJ CALIXTO Department: Room: Gender: M [employer]: : 1970 Requested By: TANVI ORONA Order Number: [id number] Reading MD: Loni Olmstead Measurements Intervals [place] Rate: 79 P: 73 NV: 165 QRS: -66 QRSD: 101 T: 41 QT: 432 QTc: 494 Interpretive Statements Sinus rhythm Left atrial enlargement Left ventricular hypertrophy Left anterior fascicular block Compared to ECG 10/02/2021 05:00:42 No significant change Electronically Signed On 05-13-2022 16:53:02 EDT by Loni Olmstead
== END 2022-05-13 13:02 | disposition home or self-care (01) ==
LOC: ED 04:29
DX: R10.13 Epigastric pain (principal); R10.12 Left upper quadrant pain; R07.9 Chest pain, unspecified; I10 Essential (primary) hypertension; E11.9 Type 2 diabetes mellitus without complications; J45.909 Unspecified asthma, uncomplicated; D57.1 Sickle-cell disease without crisis; F17.290 Nicotine dependence, other tobacco product, uncomplicated; Z88.2 Allergy status to sulfonamides
CPT/HCPCS: 36415; 71046; 80053; 80307; 81001; 83690; 84484; 85025; 93005; 96374; 99284; J2270; 80320; G0480